=== PATIENT | male | born 1940 | race Caucasian/White ===

== ENCOUNTER 2016-08-18 17:29 | Emergency (ER) | payer MEDICARE, OTHER ==
[2016-08-18] MEDS ORDERED: NS 0.9% 1000 ML* 1,000 ML IV SCH (18:45)
--- NOTE | 2016-08-18 19:07 | RAD ---
Indication: Left facial droop. CT of the brain was performed without IV contrast. Ventricular structures are midline. No midline shift is noted. There is central and cortical atrophy noted. There is no evidence of intracranial mass or hemorrhage. 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 This was noted on a prior MRI dated 2010. Paranasal sinuses and mastoid air cells are grossly unremarkable. IMPRESSION: Age-related atrophy. There is no evidence of intracranial mass or hemorrhage noted.
[2016-08-18 19:29] LABS: Hematocrit 43 % (42-52); Hemoglobin 14.4 g/dl (14.0-18.0); Mean Corpuscular HGB Conc 34 g/dl (31-36); Mean Corpuscular Hemoglobin 29 pg (27-31); Mean Corpuscular Volume 88 fL (80-94); Mean Platelet Volume 9 um3 (7.4-10.4); Red Blood Count 4.89 10^6/ul (4.0-5.4); Red Cell Distribution Width 14 % (10.5-15); White Blood Count 6.6 10^3/ul (3.5-10.8)
[2016-08-18 19:45] LABS: Albumin 4.1 g/dL (3.2-5.2); BUN/Creatinine Ratio 23.1 (8-20); Calcium 9.4 mg/dL (8.6-10.3); EGFR African American 152.8 (>60); EGFR Non-African American 118.8 (>60); Globulin 2.6 g/dL (2-4); HDL Cholesterol 35.2 mg/dL; Potassium 3.8 mmol/L (3.5-5.0); Total Bilirubin 0.9 mg/dL (0.2-1.0); Total Protein 6.7 g/dL (6.4-8.9)
[2016-08-18 19:50] LABS: Troponin I 0.04 ng/mL (<0.04)
[2016-08-18 20:20] LABS: Urine Bacteria Absent (Absent); Urine Bilirubin Negative (Negative); Urine Glucose 2+(150 mg/dL) (Negative); Urine Nitrite Negative (Negative)
[2016-08-18] MEDS ORDERED: predniSONE TAB* 20 MG PO ONE (20:25)
--- NOTE | 2016-08-18 20:32 | ED ---
Ani Heard Erika, scribed for Xu Ruvalcaba MD on 08/18/16 at 1911 . Neurological HPI - HPI Summary HPI Summary: Patient is a 76-year-old male presenting to the ED with a CC of left-sided facial paralysis starting 08/16/2016. Patient reports he developed symptoms of left-sided lip droop, inability to raise the left eyebrow, and difficulty closing the left eye. Patient came to the ED due to recommendation by his PCP. Patient denies any other focal neurological deficits, and denies visual changes. Pt does report pruritus in his right ear. - History of Current Complaint Chief Complaint: EDNeurologicalDeficit Stated Complaint: POSSIBLE STROKE ON TUESDAY Time Seen by Provider: 08/18/16 18:35 Hx Obtained From: Patient Onset/Duration: Gradual Onset, Started days ago, Still Present Timing: Constant Current Severity: Moderate Neurological Deficit Location: Facial Pain Intensity: 0 Pain Scale Used: 0-10 Numeric Associated Signs and Symptoms: Positive: Negative - Allergy/Home Medications Allergies/Adverse Reactions: Allergies Allergy/AdvReac Type Severity Reaction Status Date / Time No Known Allergies Allergy Verified 03/29/16 19:24 PMH/Surg Hx/FS Hx/Imm Hx Endocrine/Hematology History: Reports: Hx Diabetes Cardiovascular History: Reports: Hx Angina, Hx Coronary Artery Disease, Hx Hypercholesterolemia, Hx Hypertension, Hx Myocardial Infarction GI History: Reports: Hx Gastroesophageal Reflux Disease Musculoskeletal History: Denies: Hx Rheumatoid Arthritis, Hx Osteoporosis Sensory History: Reports: Hx Contacts or Glasses Opthamlomology History: Reports: Hx Contacts or Glasses - Surgical History Surgery Procedure, Year, and Place: tonisillectomy, cataract removal Hx Anesthesia Reactions: No - Immunization History Date of Tetanus Vaccine: UTD Date of Influenza Vaccine: UTD Infectious Disease History: No Infectious Disease History: Denies: Traveled Outside the [place] in Last 30 Days - Family History Known Family History: Positive: Other - CVA, cancer - Social History Alcohol Use: Weekly Alcohol Amount: 1 beer Hx Substance Use: No Substance Use Type: Reports: None Hx Tobacco Use: Yes Smoking Status (MU): Former Smoker Review of Systems Negative: Blurred Vision ENT: Other - itching right ear Neurological: Other - left-sided facial weakness All Other Systems Reviewed And Are Negative: Yes Physical Exam Triage Information Reviewed: Yes Vital Signs On Initial Exam: Initial Vitals BP 152/91 08/18/16 17:38 Vital Signs Reviewed: Yes Appearance: Positive: Well-Appearing, No Pain Distress Skin: Positive: Warm, Skin Color Reflects Adequate Perfusion, Dry Head/Face: Positive: Normal Head/Face Inspection Eyes: Positive: EOMI, JASON ENT: Positive: Normal ENT inspection Neck: Positive: Supple, Nontender Respiratory/Lung Sounds: Positive: Clear to Auscultation, Breath Sounds Present Cardiovascular: Positive: RRR Abdomen Description: Positive: Nontender, Soft Bowel Sounds: Positive: Present Musculoskeletal: Positive: Normal, Strength/ROM Intact Neurological: Positive: Other - Left sided facial weakness, left eyelid drifts open, when he raises his eyebrows his left forehead does not come up. No other neurological deficits Psychiatric: Positive: Affect/Mood Appropriate Diagnostics - Vital Signs Vital Signs Temp Pulse Resp BP Pulse Ox 08/18/16 18:04 98.5 F 68 13 153/86 97 08/18/16 18:00 67 13 143/80 97 08/18/16 17:58 98 F 63 11 143/80 97 08/18/16 17:46 141/85 08/18/16 17:44 68 15 97 08/18/16 17:39 68 11 97 08/18/16 17:38 152/91 - Laboratory Lab Results: Lab Results 08/18/16 08/18/16 08/18/16 Range/Units 17:20 17:20 17:20 WBC 6.6 (3.5-10.8) 10^3/ul RBC 4.89 (4.0-5.4) 10^6/ul Hgb 14.4 (14.0-18.0) g/dl Hct 43 (42-52) % MCV 88 (80-94) fL MCH 29 (27-31) pg MCHC 34 (31-36) g/dl RDW 14 (10.5-15) % Plt Count 127 L (150-450) 10^3/ul MPV 9 (7.4-10.4) um3 Neut % (Auto) 67.2 (38-83) % Lymph % (Auto) 20.7 L (25-47) % Josephine % (Auto) 9.3 H (1-9) % Eos % (Auto) 2.2 (0-6) % Baso % (Auto) 0.6 (0-2) % Absolute Neuts (auto) 4.4 (1.5-7.7) 10^3/ul Absolute Lymphs (auto) 1.4 (1.0-4.8) 10^3/ul Absolute Monos (auto) 0.6 (0-0.8) 10^3/ul Absolute Eos (auto) 0.1 (0-0.6) 10^3/ul Absolute Basos (auto) 0 (0-0.2) 10^3/ul Absolute Nucleated RBC 0 10^3/ul Nucleated RBC % 0.1 INR (Anticoag Therapy) 0.96 (0.89-1.11) APTT 26.0 (26.0-36.3) seconds Sodium 141 (133-145) mmol/L Potassium 3.8 (3.5-5.0) mmol/L Chloride 108 (101-111) mmol/L Carbon Dioxide 25 (22-32) mmol/L Anion Gap 8 (2-11) mmol/L BUN 15 (6-24) mg/dL Creatinine 0.65 L (0.67-1.17) mg/dL Est GFR ( Amer) 152.8 (>60) Est GFR (Non-Af Amer) 118.8 (>60) BUN/Creatinine Ratio 23.1 H (8-20) Glucose 115 H (70-100) mg/dL Lactic Acid (0.5-2.0) mmol/L Calcium 9.4 (8.6-10.3) mg/dL Total Bilirubin 0.90 (0.2-1.0) mg/dL AST 23 (13-39) U/L ALT 25 (7-52) U/L Alkaline Phosphatase 63 (34-104) U/L Troponin I 0.04 H* (<0.04) ng/mL Total Protein 6.7 (6.4-8.9) g/dL Albumin 4.1 (3.2-5.2) g/dL Globulin 2.6 (2-4) g/dL Albumin/Globulin Ratio 1.6 (1-3) Triglycerides 105 mg/dL Cholesterol 100 mg/dL LDL Cholesterol 44 mg/dL HDL Cholesterol 35.2 mg/dL Urine Color Urine Appearance Urine pH (5-9) Ur Specific [place] (1.010-1.030) Urine Protein (Negative) Urine Ketones (Negative) Urine Blood (Negative) Urine Nitrate (Negative) Urine Bilirubin (Negative) Urine Urobilinogen (Negative) Ur Leukocyte Esterase (Negative) Urine WBC (Auto) (Absent) Urine RBC (Auto) (Absent) Urine Bacteria (Absent) Hyaline Casts (Absent) Urine Glucose (Negative) Urine Ascorbic Acid (Negative) Blood Type Antibody Screen 08/18/16 08/18/16 08/18/16 Range/Units 17:20 17:20 20:05 WBC (3.5-10.8) 10^3/ul RBC (4.0-5.4) 10^6/ul Hgb (14.0-18.0) g/dl Hct (42-52) % MCV (80-94) fL MCH (27-31) pg MCHC (31-36) g/dl RDW (10.5-15) % Plt Count (150-450) 10^3/ul MPV (7.4-10.4) um3 Neut % (Auto) (38-83) % Lymph % (Auto) (25-47) % Josephine % (Auto) (1-9) % Eos % (Auto) (0-6) % Baso % (Auto) (0-2) % Absolute Neuts (auto) (1.5-7.7) 10^3/ul Absolute Lymphs (auto) (1.0-4.8) 10^3/ul Absolute Monos (auto) (0-0.8) 10^3/ul Absolute Eos (auto) (0-0.6) 10^3/ul Absolute Basos (auto) (0-0.2) 10^3/ul Absolute Nucleated RBC 10^3/ul Nucleated RBC % INR (Anticoag Therapy) (0.89-1.11) APTT (26.0-36.3) seconds Sodium (133-145) mmol/L Potassium (3.5-5.0) mmol/L Chloride (101-111) mmol/L Carbon Dioxide (22-32) mmol/L Anion Gap (2-11) mmol/L BUN (6-24) mg/dL Creatinine (0.67-1.17) mg/dL Est GFR ( Amer) (>60) Est GFR (Non-Af Amer) (>60) BUN/Creatinine Ratio (8-20) Glucose (70-100) mg/dL Lactic Acid 1.9 (0.5-2.0) mmol/L Calcium (8.6-10.3) mg/dL Total Bilirubin (0.2-1.0) mg/dL AST (13-39) U/L ALT (7-52) U/L Alkaline Phosphatase (34-104) U/L Troponin I (<0.04) ng/mL Total Protein (6.4-8.9) g/dL Albumin (3.2-5.2) g/dL Globulin (2-4) g/dL Albumin/Globulin Ratio (1-3) Triglycerides mg/dL Cholesterol mg/dL LDL Cholesterol mg/dL HDL Cholesterol mg/dL Urine Color Rabia Urine Appearance Cloudy Urine pH 5.0 (5-9) Ur Specific [place] 1.029 (1.010-1.030) Urine Protein 1+(30 mg/dl) H (Negative) Urine Ketones Trace H (Negative) Urine Blood Negative (Negative) Urine Nitrate Negative (Negative) Urine Bilirubin Negative (Negative) Urine Urobilinogen Negative (Negative) Ur Leukocyte Esterase Negative (Negative) Urine WBC (Auto) Absent (Absent) Urine RBC (Auto) Absent (Absent) Urine Bacteria Absent (Absent) Hyaline Casts Present H (Absent) Urine Glucose 2+(150 mg/dl) H (Negative) Urine Ascorbic Acid * H (Negative) Blood Type O Negative Antibody Screen Pending Result Diagrams: 08/18/16 17:20 08/18/16 17:20 Lab Statement: Any lab studies that have been ordered have been reviewed, and results considered in the medical decision making process. - Radiology CXR Radiology Interpretation Completed By: Radiologist - see [facility], currently pending - CT CT Brain CT Interpretation Completed By: Radiologist - IMPRESSION: Age-related atrophy. There is no evidence of intracranial mass or hemorrhage noted. 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/Release Non-Paretic Hand: Both Correctly Best Gaze (Only Horizontal Eye Movement): Normal Visual Field Testing: No Visual Loss Facial Paresis-Pt to Smile & Close Eyes or Grimace Symmetry: Partial Paralysis - Left sided facial weakness, left eyelid drifts open, when he raises his eyebrows his left forehead does not come up Motor Function - Right Arm: No Drift-Holds 10 Seconds Motor Function - Left Arm: No Drift-Holds 10 Seconds Motor Function - Right Leg: No Drift-Holds 10 Seconds Motor Function - Left Leg: No Drift-Holds 10 Seconds Limb Ataxia-Must be out of Proportion to Weakness Present: Absent Sensory (Use Pinprick to Test Arms/Legs/Trunk/Face): Normal Best Language (Describe Picture, Name Items): No Aphasia Dysarthria (Read Several Words): Normal Extinction and Inattention: No Abnormality Total Score: 2 Re-Evaluation - Re-Evaluation First Eval Re-Evaluation Time: 19:42 Comment: Discussed Brain CT results. Second Eval Re-Evaluation Time: 20:08 Comment: Discussed elevated troponin. Discussed recommendation for a repeat troponin Course/Dx - Course Course Of Treatment: NO CRITICAL CARE TIME. Assessment/Plan: DISCUSSED WITH DR ROBERSON. DISCUSSED THE 0.04 TROPONIN WITH PATIENT. HE HAS HAD NO CHEST PAIN. THEREFORE NO TROPONIN RECHECK. DISCHARGE HOME STABLE. - Diagnoses Provider Diagnoses: Lawton's palsy - Physician Notifications Discussed Care of Patient With: Dr. Roberson (neurology) at 19:48 - discussed history. agrees with Lawton's Palsy diagnosis and treatment plan of prednisone and valcyclovir. Discharge - Discharge Plan Condition: Stable Disposition: HOME Prescriptions: ValACYclovir (*) [Valtrex 1 GM(*)] 1 gm PO TID #21 tab predniSONE TAB* [Deltasone TAB*] 60 mg PO DAILY #36 tab Patient Education Materials: [place] Palsy (ED) Referrals: [facility], [Primary Care Provider] - Additional Instructions: FOLLOW UP WITH YOUR DOCTOR. TAKE THE VALACYCLOVIR (ANTIVIRAL) AND PREDNISONE DIRECTED. KEEP YOUR EYE MOIST. RETURN TO THE EMERGENCY DEPARTMENT FOR ANY WORSENING OF YOUR CONDITION OR QUESTIONS OR CONCERNS. The documentation as recorded by the Ani castaneda Erika accurately reflects the service I personally performed and the decisions made by me, Xu Ruvalcaba MD.
[2016-08-18 20:47] VITALS: BP 140/74
--- NOTE | 2016-08-18 21:03 | RAD ---
Indication: Facial trauma, stroke. Single frontal view of the chest performed at 1934 hours was reviewed. Comparison is made with previous exam dated March 29, 2016. No mediastinal shift is noted. Heart is of normal size and configuration. Lung mercado appear clear. IMPRESSION: NO ACTIVE CARDIOPULMONARY DISEASE IS NOTED.
== END 2016-08-18 20:45 | disposition home or self-care (01) ==
LOC: ED 17:29
DX: G51.0 Bell's palsy (principal)
CPT/HCPCS: 36415; 70450; 71010; 80053; 80061; 81003; 81015; 83605; 84484; 85025; 85610; 85730; 86850; 86900; 86901; 93005; 99285; J7512

== ENCOUNTER 2022-10-27 18:44 | Inpatient (IN) ==
[2022-10-27] MEDS ORDERED: Acetaminophen IV 1 GM/100ML 1,000 MG/100 ML BAG IV ONE (19:18)
[2022-10-27 19:43] LABS: ABS Eosinophils 0.1 10^3/uL (0.0-0.5); ABS Lymphocytes 0.8 10^3/uL (1.0-4.8); ABS Monocytes 0.4 10^3/uL (0.0-1.1); ABS Neutrophils 5.5 10^3/uL (1.5-7.6); Eosinophil % 1.1 %; Hematocrit 38.2 % (38-53); Lymphocyte % 11.3 %; Mean Corpuscular Hemoglobin 29.2 pg (27-33); Mean Corpuscular Volume 85.8 fL (80-97); Mean Platelet Volume 8.9 fL (7.5-11.2); Platelet Count 165 10^3/uL (150-450); Red Blood Count 4.45 10^6/uL (4.06-5.63); Red Cell Distribution Width 14.5 % (12-17); White Blood Count 6.7 10^3/uL (3.6-10.2)
[2022-10-27 19:54] LABS: Activated Partial Thrombo Time 26.8 seconds (26.0-38.0); INR 1.01 (0.88-1.18)
[2022-10-27 20:11] LABS: Urine Appearance Clear; Urine Bilirubin Negative (Negative); Urine Blood Negative (Negative); Urine Color Yellow; Urine Glucose 2+(150 mg/dL) (Negative); Urine Ketones Trace (Negative); Urine Nitrite Negative (Negative); Urine Protein 1+(30 mg/dL) (Negative); Urine Specific Gravity 1.025 (1.002-1.030); Urine Urobilinogen Negative (Negative)
[2022-10-27 20:14] LABS: Albumin 4.2 g/dL (3.2-5.2); Albumin/Globulin Ratio 2.1 (1-3); Creatinine, Serum 0.91 mg/dL (0.67-1.17); Potassium 4.5 mmol/L (3.5-5.0); Total Bilirubin 0.5 mg/dL (0.2-1.0); Total Protein 6.2 g/dL (6.4-8.9); eGFR CKD-EPI 83.1 (>60)
[2022-10-27 20:22] LABS: Urine Bacteria Absent (Absent); Urine Red Blood Cell Absent (Absent); Urine Squamous Epithelial Cell Present (Absent); Urine White Blood Cell Trace(0-5/hpf) (Absent)
[2022-10-27] MEDS ORDERED: Ondansetron 4 mg VIAL 2 MG/ML 2 ml VIAL IV PRN (22:04)
[2022-10-27] MEDS ORDERED: Morphine 2 MG/ML SYRINGE IV PRN (22:08)
[2022-10-27] MEDS ORDERED: Dextrose 50% Syringe 50 ml 25 GM/50 ML SYRINGE IV PUSH PRN (22:24)
[2022-10-27] MEDS ORDERED: Enoxaparin 40 MG/0.4 ML SYR SUBCUT ONE (23:00)
[2022-10-27] MEDS: NS 0.9% 1000 ml BAG 1,000 ML IV SCH (23:11)
[2022-10-28] MEDS ORDERED: Sulfur Hexaflouride MICROSPHR 25 MG VIAL ONE (08:00)
[2022-10-28] MEDS ORDERED: Acetaminophen IV 1 GM/100ML 1,000 MG/100 ML BAG IV PRN (08:17)
[2022-10-28] MEDS: Pantoprazole VIAL 40 MG VIAL IV SCH (10:02)
[2022-10-28] MEDS ORDERED: Bupivacaine 0.5% SDV PF 30ML VIAL ONE (12:42)
[2022-10-28] MEDS ORDERED: ceFAZolin 2 GM in NS PREMIX 2 GM/100 ML BAG IVPB ONE (13:27)
[2022-10-28] MEDS ORDERED: Ondansetron 4 mg VIAL 2 MG/ML 2 ml VIAL ONE (13:36)
[2022-10-28] MEDS ORDERED: Metoclopramide 5 MG/ML VIAL (10 mg) ONE (13:36)
[2022-10-28] MEDS ORDERED: Propofol 10 MG/ML 20 ML BTL ONE (13:36)
[2022-10-28] MEDS ORDERED: Rocuronium 50 mg VIAL 10 mg/ml 5 ml VIAL (50 mg) ONE ×2 (13:36→15:32)
[2022-10-28] MEDS ORDERED: fentaNYL 250 mcg/5 ml 50 MCG/ML 5 ml VIAL (250 MCG) ONE (13:36)
[2022-10-28] MEDS ORDERED: Acetaminophen IV 1 GM/100ML 1,000 MG/100 ML BAG IV ONE (13:36)
[2022-10-28] MEDS ORDERED: Pneumococcal Vac 23-Polyvalent IM ONE (15:00)
[2022-10-28] MEDS ORDERED: fentaNYL 100 mcg/2 ml 50 MCG/ML VIAL ONE ×2 (15:18→16:57)
[2022-10-28] MEDS ORDERED: Phenylephrine 40 mcg/mL 10mL (400mcg) SYRINGE ONE ×2 (15:27)
[2022-10-28] MEDS ORDERED: Prochlorperazine 5 mg/ml 2 ml VIAL (10 mg) IV PRN (15:31)
[2022-10-28] MEDS ORDERED: fentaNYL 100 mcg/2 ml 50 MCG/ML VIAL IV PRN (15:31)
[2022-10-28] MEDS ORDERED: Naloxone 0.4 mg VIAL 0.4 mg/ml 1 ml VIAL IV PRN (15:31)
[2022-10-28 16:54] LABS: Hematocrit 33.9 % (38-53); Hemoglobin 11.6 g/dL (13.2-16.3)
[2022-10-28] MEDS ORDERED: Prochlorperazine 5 mg/ml 2 ml VIAL (10 mg) ONE (16:57)
[2022-10-28] MEDS: NS 0.9% 1000 ml BAG 1,000 ML IV SCH (20:55)
[2022-10-28] MEDS: ceFAZolin 1 GM in Dextrose 1 GM/50 ML BAG IVPB SCH (22:15)
[2022-10-29 06:23] LABS: ABS Eosinophils 0.2 10^3/uL (0.0-0.5); ABS Lymphocytes 0.8 10^3/uL (1.0-4.8); ABS Monocytes 0.6 10^3/uL (0.0-1.1); ABS Neutrophils 5.4 10^3/uL (1.5-7.6); Eosinophil % 2.9 %; Hematocrit 29.6 % (38-53); Hemoglobin 10.3 g/dL (13.2-16.3); Lymphocyte % 11.2 %; Mean Corpuscular Hemoglobin 30.1 pg (27-33); Mean Corpuscular Hgb Conc 34.7 g/dL (31-36); Mean Corpuscular Volume 86.7 fL (80-97); Mean Platelet Volume 8.7 fL (7.5-11.2); Platelet Count 115 10^3/uL (150-450); Red Blood Count 3.41 10^6/uL (4.06-5.63); Red Cell Distribution Width 14.6 % (12-17)
[2022-10-29 06:33] LABS: Calcium 8.2 mg/dL (8.6-10.3); Creatinine, Serum 0.8 mg/dL (0.67-1.17); Magnesium 1.3 mg/dL (1.9-2.7); Potassium 4.3 mmol/L (3.5-5.0); eGFR CKD-EPI 87.3 (>60)
[2022-10-29] MEDS: ceFAZolin 1 GM in Dextrose 1 GM/50 ML BAG IVPB SCH ×2 (07:42→15:13)
[2022-10-29] MEDS ORDERED: Magnesium Sulf 4 GM/100 ML IV 4,000 MG/100 ML BAG IVPB ONE (08:07)
[2022-10-29] MEDS: Enoxaparin 40 MG/0.4 ML SYR SUBCUT SCH (09:13)
[2022-10-29] MEDS: Pantoprazole VIAL 40 MG VIAL IV SCH (09:14)
[2022-10-30 08:01] LABS: ABS Eosinophils 0.2 10^3/uL (0.0-0.5); ABS Lymphocytes 0.8 10^3/uL (1.0-4.8); ABS Monocytes 0.8 10^3/uL (0.0-1.1); ABS Neutrophils 6.4 10^3/uL (1.5-7.6); Eosinophil % 2.9 %; Hematocrit 27.4 % (38-53); Hemoglobin 9.7 g/dL (13.2-16.3); Lymphocyte % 9.7 %; Mean Corpuscular Hemoglobin 30.4 pg (27-33); Mean Corpuscular Hgb Conc 35.2 g/dL (31-36); Mean Corpuscular Volume 86.4 fL (80-97); Mean Platelet Volume 8.9 fL (7.5-11.2); Platelet Count 116 10^3/uL (150-450); Red Blood Count 3.18 10^6/uL (4.06-5.63); Red Cell Distribution Width 14.8 % (12-17); White Blood Count 8.4 10^3/uL (3.6-10.2)
[2022-10-30] MEDS ORDERED: Polyethylene Glycol 3350 17 GM PACKET PO PRN (08:16)
[2022-10-30] MEDS ORDERED: Magnesium Hydroxide LIQ 30 ML UDC PO PRN (08:16)
[2022-10-30] MEDS ORDERED: Senna TAB 8.6 mg TAB PO PRN (08:16)
[2022-10-30] MEDS: Magnesium Hydroxide LIQ 30 ML UDC PO SCH ×2 (09:00→21:28)
[2022-10-30] MEDS: Enoxaparin 40 MG/0.4 ML SYR SUBCUT SCH (09:01)
[2022-10-30] MEDS: Pantoprazole VIAL 40 MG VIAL IV SCH (09:01)
[2022-10-30] MEDS ORDERED: Morphine 2 MG/ML SYRINGE IV PRN (16:28)
[2022-10-31] MEDS: Enoxaparin 40 MG/0.4 ML SYR SUBCUT SCH (08:00)
[2022-10-31] MEDS: Magnesium Hydroxide LIQ 30 ML UDC PO SCH (08:01)
[2022-10-31] MEDS: Pantoprazole VIAL 40 MG VIAL IV SCH (08:44)
[2022-10-31] MEDS ORDERED: Aspirin EC 81 mg TAB.EC (enteric coated) PO SCH (09:00)
[2022-10-31 11:05] VITALS: BP 123/62
== END 2022-10-31 11:40 | DRG 522 ==
LOC: ED 18:44 → SUATTDRO 22:04 → MEDTELE 22:04 → MED 10-28 00:23 → SSU 10-28 18:27
PROVIDERS: ADMIT Hospitalist; ATTEND Internal Medicine

== ENCOUNTER 2022-11-23 08:58 | Observation (INO) ==
[2022-11-24] MEDS ORDERED: Aspirin EC 81 mg TAB.EC (enteric coated) PO SCH (09:00)
[2022-11-24 10:03] VITALS: BP 135/71
== END 2022-11-24 14:10 ==
LOC: ED 08:58 → EDHOLD 08:58 → SUATTDRO 15:59 → MED 17:43
PROVIDERS: ADMIT Internal Medicine; ATTEND Student in an Organized Health Care Education/Training Program

== ENCOUNTER 2022-12-20 13:54 | Inpatient (IN) ==
[2022-12-20] MEDS ORDERED: Dextrose 50% Syringe 50 ml 25 GM/50 ML SYRINGE ONE (13:58)
[2022-12-20 14:30] LABS: ABS Lymphocytes 0.8 10^3/uL (1.0-4.8); ABS Neutrophils 13.4 10^3/uL (1.5-7.6); ABS Nucleated RBC 0.01 10^3/ul; Eosinophil % 0.1 %; Hematocrit 36.8 % (38-53); Hemoglobin 12.2 g/dL (13.2-16.3); Lymphocyte % 5.1 %; Mean Corpuscular Hemoglobin 28.4 pg (27-33); Mean Corpuscular Hgb Conc 33.1 g/dL (31-36); Mean Corpuscular Volume 85.7 fL (80-97); Mean Platelet Volume 9.7 fL (7.5-11.2); Platelet Count 269 10^3/uL (150-450); Red Blood Count 4.29 10^6/uL (4.06-5.63); White Blood Count 15.3 10^3/uL (3.6-10.2)
[2022-12-20 14:40] LABS: Activated Partial Thrombo Time 25.4 seconds (26.0-38.0); INR 1.15 (0.88-1.18)
[2022-12-20 14:51] LABS: ALT 11 U/L (7-52); Albumin 3.7 g/dL (3.2-5.2); Albumin/Globulin Ratio 1.1 (1-3); Alkaline Phosphatase 103 U/L (35-149); Blood Urea Nitrogen 49 mg/dL (6-24); C Reactive Protein 184.19 mg/L (<8.01); CO2 Carbon Dioxide 22 mmol/L (22-32); Calcium 9.6 mg/dL (8.6-10.3); Chloride 105 mmol/L (101-111); Creatinine, Serum 1.24 mg/dL (0.67-1.17); Globulin 3.5 g/dL (2-4); Glucose 251 mg/dL (70-100); Sodium 138 mmol/L (135-145); Total Protein 7.2 g/dL (6.4-8.9); eGFR CKD-EPI 57.3 (>60)
[2022-12-20] MEDS ORDERED: Lactated Ringers 1000 ml BAG 1,000 ML IV ONE ×2 (14:53→17:58)
[2022-12-20 14:54] LABS: High Sens Troponin Baseline 51 pg/mL (<20)
[2022-12-20] MEDS ORDERED: cefTRIAXone 1 gm/50 mL D5W 1 GM/50 ML BAG IV ONE (15:03)
[2022-12-20] MEDS ORDERED: Azithromycin 500 mg/250 ml NS 500 MG/250 ML BAG IVPB ONE (15:03)
[2022-12-20 15:33] LABS: Anion Gap 11 mmol/L (2-16)
[2022-12-20] MEDS: Enoxaparin 40 MG/0.4 ML SYR SUBCUT SCH (16:54)
[2022-12-20 17:21] LABS: Potassium Redraw 4.7 mmol/L (3.5-5.0)
[2022-12-20] MEDS ORDERED: Vancomycin 750 MG in NS 0.9% 250 ml 250 ML IVPB SCH (17:56)
[2022-12-20] MEDS ORDERED: Piperacillin/Tazobac 3.375 BAG 3.375 GM/100 ML BAG IV ONE (17:57)
[2022-12-20] MEDS ORDERED: Zosyn per Pharmacy NOTE FOLLOW UP SCH (18:00)
[2022-12-20] MEDS ORDERED: Dextrose 50% Syringe 50 ml 25 GM/50 ML SYRINGE IV PUSH PRN (18:02)
[2022-12-20] MEDS: Pantoprazole VIAL 40 MG VIAL IV SCH (18:45)
[2022-12-20] MEDS ORDERED: Vancomycin per Pharmacy 1 EA NOTE FOLLOW UP PRN (19:26)
[2022-12-20] MEDS ORDERED: Vancomycin 1000 MG in NS 0.9% 250 ML IVPB ONE (19:30)
[2022-12-20 19:54] LABS: Hematocrit 31.9 % (38-53); Hemoglobin 10.7 g/dL (13.2-16.3); Mean Corpuscular Hemoglobin 28.5 pg (27-33); Mean Corpuscular Hgb Conc 33.5 g/dL (31-36); Mean Corpuscular Volume 85.3 fL (80-97); Mean Platelet Volume 9.4 fL (7.5-11.2); Platelet Count 234 10^3/uL (150-450); Red Blood Count 3.74 10^6/uL (4.06-5.63); Red Cell Distribution Width 16.9 % (12-17); White Blood Count 12.7 10^3/uL (3.6-10.2)
[2022-12-20] MEDS ORDERED: Vancomycin 1,000 MG BAG/ADDV ONE (20:08)
[2022-12-20 20:47] LABS: .Transferrin 132 mg/dL (203-362); Total Iron Binding Capacity 185 mcg/dL (250-450)
[2022-12-20 20:56] LABS: Ferritin 519.7 ng/mL (24-336)
[2022-12-20] MEDS ORDERED: ZOSYN 3.375 GM Q8H per EXTENDED INFUSION IV SCH (22:45)
[2022-12-21 00:16] LABS: % Iron Saturation 10 % (15-55); .Transferrin 144 mg/dL (203-362); Iron < 20 ug/dL (50-212); Total Iron Binding Capacity 202 mcg/dL (250-450); Unsaturated Iron Binding 182 ug/dL
[2022-12-21] MEDS: ZOSYN 3.375 GM Q8H per EXTENDED INFUSION IV SCH ×2 (00:41→08:34)
[2022-12-21 05:41] LABS: ABS Basophils 0.1 10^3/uL (0.0-0.1); ABS Eosinophils 0.1 10^3/uL (0.0-0.5); ABS Lymphocytes 1.1 10^3/uL (1.0-4.8); ABS Monocytes 0.7 10^3/uL (0.0-1.1); ABS Neutrophils 8.4 10^3/uL (1.5-7.6); ABS Nucleated RBC 0.01 10^3/ul; Eosinophil % 0.9 %; Hematocrit 32.6 % (38-53); Lymphocyte % 10.4 %; Mean Corpuscular Hemoglobin 29.1 pg (27-33); Mean Corpuscular Hgb Conc 33.8 g/dL (31-36); Mean Corpuscular Volume 86.1 fL (80-97); Mean Platelet Volume 9.5 fL (7.5-11.2); Nucleated Red Blood Cells % 0.1 /100 WBC (0.0-0.4); Platelet Count 187 10^3/uL (150-450); Red Blood Count 3.79 10^6/uL (4.06-5.63); White Blood Count 10.4 10^3/uL (3.6-10.2)
[2022-12-21 06:02] LABS: Albumin 3.2 g/dL (3.2-5.2); Calcium 8.8 mg/dL (8.6-10.3); Creatinine, Serum 1.18 mg/dL (0.67-1.17); Globulin 3.1 g/dL (2-4); Magnesium 1.7 mg/dL (1.9-2.7); Potassium 4.1 mmol/L (3.5-5.0); Total Bilirubin 0.7 mg/dL (0.2-1.0); Total Protein 6.3 g/dL (6.4-8.9); eGFR CKD-EPI 60.8 (>60)
[2022-12-21] MEDS: Pantoprazole VIAL 40 MG VIAL IV SCH (06:06)
[2022-12-21] MEDS ORDERED: Magnesium Sulfate 2 gm BAG 2 GM/50 ML BAG IVPB ONE (07:34)
[2022-12-21] MEDS ORDERED: Lactated Ringers 1000 ml BAG 1,000 ML IV ONE ×2 (08:08→08:21)
[2022-12-21] MEDS: cefTRIAXone 1 gm/50 mL D5W 1 GM/50 ML BAG IV SCH (13:26)
[2022-12-21] MEDS ORDERED: Vancomycin 1000 MG in NS 0.9% 250 ML IVPB SCH (14:00)
[2022-12-21] MEDS: Azithromycin 500 mg/250 ml NS 500 MG/250 ML BAG IVPB SCH (14:21)
[2022-12-21] MEDS: Enoxaparin 40 MG/0.4 ML SYR SUBCUT SCH (16:59)
[2022-12-21] MEDS ORDERED: Lactated Ringers 1000 ml BAG 1,000 ML IV SCH (18:00)
[2022-12-22 06:17] LABS: ABS Eosinophils 0.2 10^3/uL (0.0-0.5); ABS Lymphocytes 1.3 10^3/uL (1.0-4.8); ABS Monocytes 0.5 10^3/uL (0.0-1.1); ABS Neutrophils 5.8 10^3/uL (1.5-7.6); Eosinophil % 2.5 %; Hematocrit 27.2 % (38-53); Hemoglobin 9.2 g/dL (13.2-16.3); Lymphocyte % 16.2 %; Mean Corpuscular Hgb Conc 33.8 g/dL (31-36); Mean Corpuscular Volume 85.8 fL (80-97); Mean Platelet Volume 9.4 fL (7.5-11.2); Platelet Count 190 10^3/uL (150-450); Red Blood Count 3.17 10^6/uL (4.06-5.63); Red Cell Distribution Width 16.7 % (12-17); White Blood Count 7.8 10^3/uL (3.6-10.2)
[2022-12-22 06:32] LABS: Albumin 2.9 g/dL (3.2-5.2); Calcium 8.7 mg/dL (8.6-10.3); Creatinine, Serum 0.97 mg/dL (0.67-1.17); Globulin 2.8 g/dL (2-4); Potassium 3.7 mmol/L (3.5-5.0); Total Bilirubin 0.5 mg/dL (0.2-1.0); Total Protein 5.7 g/dL (6.4-8.9)
[2022-12-22 09:07] LABS: C Reactive Protein 123.21 mg/L (<8.01)
[2022-12-22] MEDS ORDERED: Lactated Ringers 1000 ml BAG 1,000 ML IV ONE (11:05)
[2022-12-22] MEDS: cefTRIAXone 1 gm/50 mL D5W 1 GM/50 ML BAG IV SCH (14:21)
[2022-12-22] MEDS: Azithromycin 500 mg/250 ml NS 500 MG/250 ML BAG IVPB SCH (15:39)
[2022-12-22] MEDS: Enoxaparin 40 MG/0.4 ML SYR SUBCUT SCH (16:41)
[2022-12-23 05:27] LABS: ABS Eosinophils 0.2 10^3/uL (0.0-0.5); ABS Lymphocytes 1.3 10^3/uL (1.0-4.8); ABS Monocytes 0.5 10^3/uL (0.0-1.1); ABS Neutrophils 3.8 10^3/uL (1.5-7.6); Eosinophil % 4.1 %; Lymphocyte % 21.7 %; Mean Corpuscular Hemoglobin 28.4 pg (27-33); Mean Corpuscular Hgb Conc 33.3 g/dL (31-36); Mean Corpuscular Volume 85.3 fL (80-97); Mean Platelet Volume 9.2 fL (7.5-11.2); Platelet Count 191 10^3/uL (150-450); Red Blood Count 3.17 10^6/uL (4.06-5.63); Red Cell Distribution Width 16.7 % (12-17); White Blood Count 5.9 10^3/uL (3.6-10.2)
[2022-12-23 05:44] LABS: Albumin 2.6 g/dL (3.2-5.2); Calcium 8.4 mg/dL (8.6-10.3); Creatinine, Serum 0.73 mg/dL (0.67-1.17); Globulin 2.7 g/dL (2-4); Magnesium 1.5 mg/dL (1.9-2.7); Potassium 3.5 mmol/L (3.5-5.0); Total Bilirubin 0.5 mg/dL (0.2-1.0); Total Protein 5.3 g/dL (6.4-8.9); eGFR CKD-EPI 89.7 (>60)
[2022-12-23 08:28] LABS: Phosphorus 2.5 mg/dL (2.5-5.0)
[2022-12-23] MEDS ORDERED: Magnesium Sulf 4 GM/100 ML IV 4,000 MG/100 ML BAG IVPB ONE (08:30)
[2022-12-23] MEDS ORDERED: Ferric Gluconate IV 125 MG in NS 0.9% 100 ml BAG 100 ML IVPB ONE (09:00)
[2022-12-23] MEDS ORDERED: Vancomycin Trough Check NOTE FOLLOW UP ONE (13:30)
[2022-12-23] MEDS: Enoxaparin 40 MG/0.4 ML SYR SUBCUT SCH (15:19)
[2022-12-23] MEDS: Polyethylene Glycol 3350 17 GM PACKET PO SCH (15:20)
[2022-12-23] MEDS: Senna TAB 8.6 mg TAB PO SCH (21:00)
[2022-12-23] MEDS: Mineral Oil ENEMA 118 ML/BOTTLE BOTTLE PR ONE ×2 (21:01→23:40)
[2022-12-24 06:16] LABS: ABS Eosinophils 0.2 10^3/uL (0.0-0.5); ABS Lymphocytes 1.1 10^3/uL (1.0-4.8); ABS Monocytes 0.5 10^3/uL (0.0-1.1); ABS Neutrophils 3.7 10^3/uL (1.5-7.6); ABS Nucleated RBC 0.01 10^3/ul; Eosinophil % 3.6 %; Hematocrit 26.9 % (38-53); Hemoglobin 9.1 g/dL (13.2-16.3); Lymphocyte % 19.7 %; Mean Corpuscular Hemoglobin 28.4 pg (27-33); Mean Corpuscular Volume 83.5 fL (80-97); Mean Platelet Volume 8.9 fL (7.5-11.2); Nucleated Red Blood Cells % 0.1 /100 WBC (0.0-0.4); Platelet Count 193 10^3/uL (150-450); Red Blood Count 3.22 10^6/uL (4.06-5.63); Red Cell Distribution Width 16.4 % (12-17); White Blood Count 5.5 10^3/uL (3.6-10.2)
[2022-12-24 06:35] LABS: Calcium 8.3 mg/dL (8.6-10.3); Creatinine, Serum 0.65 mg/dL (0.67-1.17); Magnesium 1.8 mg/dL (1.9-2.7); Phosphorus 2.1 mg/dL (2.5-5.0); Potassium 3.3 mmol/L (3.5-5.0); eGFR CKD-EPI 92.9 (>60)
[2022-12-24] MEDS: Polyethylene Glycol 3350 17 GM PACKET PO SCH ×2 (08:26→15:50)
[2022-12-24] MEDS ORDERED: Magnesium Sulfate IV 3 GM in NS 0.9% 100 ml BAG 100 ML IVPB ONE (09:09)
[2022-12-24] MEDS: Potassium Chloride LIQUID 20 MEQ/15 ML LIQUID PO SCH ×2 (10:45→21:34)
[2022-12-24] MEDS ORDERED: Potassium Phosphate IV 15 MMOL in NS 0.9% 250 ml 250 ML IVPB ONE (10:50)
[2022-12-24] MEDS ORDERED: Magnesium Sulf 4 GM/100 ML IV 4,000 MG/100 ML BAG IVPB ONE (10:54)
[2022-12-24] MEDS ORDERED: Potassium Chlor 20 meq TAB.ER PO SCH (11:00)
[2022-12-24] MEDS: Ferric Gluconate IV 125 MG in NS 0.9% 100 ml BAG 100 ML IVPB SCH (13:37)
[2022-12-24] MEDS: Enoxaparin 40 MG/0.4 ML SYR SUBCUT SCH (15:50)
[2022-12-24] MEDS: Senna TAB 8.6 mg TAB PO SCH (21:33)
[2022-12-25] MEDS: Ferric Gluconate IV 125 MG in NS 0.9% 100 ml BAG 100 ML IVPB SCH (08:29)
[2022-12-25] MEDS: Polyethylene Glycol 3350 17 GM PACKET PO SCH ×2 (09:41→17:06)
[2022-12-25] MEDS: Enoxaparin 40 MG/0.4 ML SYR SUBCUT SCH (17:06)
[2022-12-25] MEDS: Senna TAB 8.6 mg TAB PO SCH (21:07)
[2022-12-25 23:33] LABS: Calcium 8.5 mg/dL (8.6-10.3); Creatinine, Serum 0.61 mg/dL (0.67-1.17); Magnesium 1.6 mg/dL (1.9-2.7); Phosphorus 2.6 mg/dL (2.5-5.0); Potassium 3.9 mmol/L (3.5-5.0); eGFR CKD-EPI 94.7 (>60)
[2022-12-26] MEDS ORDERED: Magnesium Sulfate 2 gm BAG 2 GM/50 ML BAG IVPB ONE (00:43)
[2022-12-26 02:05] LABS: Rapid COVID-19 Molecular Undetected (Undetected)
[2022-12-26 07:01] LABS: Calcium 8.4 mg/dL (8.6-10.3); Creatinine, Serum 0.68 mg/dL (0.67-1.17); Magnesium 1.9 mg/dL (1.9-2.7); Phosphorus 2.5 mg/dL (2.5-5.0); Potassium 4.1 mmol/L (3.5-5.0); eGFR CKD-EPI 91.7 (>60)
[2022-12-26] MEDS: Ferric Gluconate IV 125 MG in NS 0.9% 100 ml BAG 100 ML IVPB SCH (09:01)
[2022-12-26] MEDS: Polyethylene Glycol 3350 17 GM PACKET PO SCH ×2 (09:09→14:40)
[2022-12-26] MEDS: Enoxaparin 40 MG/0.4 ML SYR SUBCUT SCH (17:10)
[2022-12-26] MEDS: Senna TAB 8.6 mg TAB PO SCH (20:37)
[2022-12-27] MEDS: Ferric Gluconate IV 125 MG in NS 0.9% 100 ml BAG 100 ML IVPB SCH (10:48)
[2022-12-27] MEDS: Polyethylene Glycol 3350 17 GM PACKET PO SCH (11:03)
[2022-12-27 15:02] VITALS: BP 130/80
== END 2022-12-27 15:00 | DRG 871 ==
LOC: ED 13:54 → EDHOLD 15:37 → SUATTDRO 15:37 → MEDTELE 23:04
PROVIDERS: ADMIT Internal Medicine; ATTEND Internal Medicine